=== PATIENT | female | born 1980 | race Caucasian/White ===

== ENCOUNTER 2020-09-29 08:12 | Outpatient (CLI) | payer OTHER, SELFPAY ==
--- NOTE | 2020-09-29 08:27 | FL_ITS ---
WS: [id number] Barium swallow and esophagram, upper GI series with air, 09/29/2020 Clinical Data: ABD PAIN Comparison: None. Fluoroscopy time: 1.9 minutes. Findings: The patient swallowed the thick and thin barium, and it flowed into the hypopharynx without hesitatio n. No stricture, mass, polyp or erosion was seen. The barium passed into the esophagus and there was normal motility throughout. There was a moderate h iatal hernia with a Schatzki ring. There is massive reflux with the patient in the recumbent position which reached the esophageal inlet. No ulcer, stricture, mass, polyp or erosion of the distal esopha lars was seen. The barium passed into the stomach which was well distended. No erosion, polyp, mass or deformity cou ld be seen. No gastric ulcer was present. Barium then passed into the duodenal bulb which distended normally without ulceration. The proximal small bowel is normal. FL/FL upper GI w air* [id number] Impression: 1. Moderate hiatal hernia with massive gastroesophageal reflux. 2. Negative upper GI series.
== END 2020-09-29 08:13 | disposition home or self-care (01) ==
PROVIDERS: Visit Provider Electrodiagnostic Medicine
DX: K92.0 Hematemesis (principal); K92.1 Melena; R10.13 Epigastric pain; K44.9 Diaphragmatic hernia without obstruction or gangrene
CPT/HCPCS: 74246

== ENCOUNTER 2023-09-21 17:34 | Emergency (ER) | payer OTHER, SELFPAY ==
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
[2023-09-21 17:39] VITALS: BP 139/89; PULSE 69; RESP 16; TEMP 36.7; O2SAT 97
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
[2023-09-21 18:22] VITALS: BP 129/80
[2023-09-21 18:38] LABS: Basophils # 0.1 10^3/uL (0.0-0.1); Basophils % 1.4 %; Eosinophils # 0.2 10^3/uL (0.0-0.8); Eosinophils % 3.3 %; Hematocrit 36.7 % (36-47); Lymphocytes # 1.8 10^3/uL (0.8-4.8); Lymphocytes % 31.1 %; Mean Corpuscular HGB Conc 34.6 g/dL (30-55); Mean Corpuscular Volume 89.5 fl (85-98); Mean Platelet Volume 9.8 fL (7.4-10.4); Monocytes # 0.5 10^3/uL (0.2-0.9); Neutrophils # 3.24 10^3/uL (1.8-7.7); Nucleated Red Blood Cells % 0 %; Platelet Count 242 10^3/cmm (157-399); Red Cell Distribution Width 12.7 % (12.1-15.1); White Blood Count 5.78 10^3/uL (3.29-11.43)
[2023-09-21 18:55] LABS: Alanine Aminotransferase 20 U/L (0-33); Albumin Level 4.2 g/dL (3.5-5.2); Alkaline Phosphatase 60 U/L (35-105); Anion Gap 13.3 (5-19); Aspartate Amino Transferase 18 U/L (0-32); Blood Urea Nitrogen 12 mg/dL (6-20); Calcium 8.9 mg/dL (8.5-10.5); Carbon Dioxide 23 mmol/L (22-29); Chloride 108 mmol/L (98-107); Creatinine Clr Calc Pharmacy 96.2585; Globulin 2.4 g/dL (1.3-4.6); Glomerular Filtration Rate 77.9 mL/min (90-130); Glucose 95 mg/dL (65-115); Osmolality Calculated 292 mOsm/kg (285-295); Potassium 3.3 mmol/L (3.5-5.1); Sodium 141 mmol/L (136-145); Total Bilirubin 0.5 mg/dL (0.15-1.2); Total Protein 6.6 g/dL (6.6-8.7)
[2023-09-21] MEDS: ondansetron 2 mg/ML SDV 2 mL 4 MG IVP (19:21)
[2023-09-21 19:23] VITALS: RESP 16; O2SAT 97
[2023-09-21] MEDS: morphine 4 mg/mL SDV 1 mL IVP (19:23)
--- NOTE | 2023-09-21 19:41 | PC.NURSE ---
Pt sent home with 2tabs of Tilden 5/[address] Almendarez's orders.
[2023-09-21 19:57] VITALS: BP 114/76; PULSE 73; RESP 16; O2SAT 99
--- NOTE | 2023-09-22 13:13 | PC.NURSE ---
PT FAMILY MEMBER, CAROLE, CALLED ASKING ABOUT PT AND DAUGHTER INFO. NO INFO GIVEN D/T FAMILY MEMBER NOT BEING ON CONTACT LIST.
== END 2023-09-21 19:50 | disposition home or self-care (01) ==
PROVIDERS: Family Medicine; Emergency Provider Emergency Medicine; PCP Electrodiagnostic Medicine
DX: S00.81XA Abrasion of other part of head, initial encounter (principal); S00.83XA Contusion of other part of head, initial encounter; S16.1XXA Strain of muscle, fascia and tendon at neck level, initial encounter; V89.2XXA Person injured in unspecified motor-vehicle accident, traffic, initial encounter
CPT/HCPCS: 36415; 70450; 70486; 71045; 72125; 80053; 85025; 96374; 96375; 99285; J2270; J2405

== ENCOUNTER 2024-07-16 15:40 | Outpatient (CLI) | payer OTHER, SELFPAY ==
--- NOTE | 2024-07-16 15:43 | MR_ITS ---
WS: [id number] MRI RIGHT KNEE NONCONTRAST TECHNIQUE: Axial PD, coronal PD fat sat, coronal PD, sagittal PD, and sagittal PD fat-sat images obtained. CLINICAL INFORMATION: PAIN IN RIGHT KNEE COMPARISON: None. FINDINGS: Prior postoperative changes ACL repair with tibial tunnel. Severe tricompartmental arthritis advanced for patient this age. Advanced chondromalacia patella with full-thickness cartilage defects. Hypertrophic patella. Distal quadriceps and patella tendons are intact. Small suprapatellar effusion. ACL repair appears intact. PCL appears intact. Advanced joint space narrowing medial and lateral joint compartments worse in the lateral joint compartment with grade 4 chondromalacia. Complete loss of the lateral joint compartment. Subchondral edema in the lateral femoral condyle and tibial plateau. Tiny amount of residual meniscus in the medial joint compartment with advanced joint space narrowing. Peripheral extrusion of the residual medial meniscus. Medial and lateral collateral ligaments appear intact. Popliteus appears intact. Normal popliteal fossa. MR/MR knee RT wo con* [id number] IMPRESSION: 1. 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 2. Prior postoperative changes ACL repair with tibial tunnel which appears curt ssly intact. PCL appears intact. 3. 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 4. Advanced joint space narrowing medial and lateral joint compartments worse in the lateral joint compartment with [id number] articulation. 5. Small amount of residual desiccated meniscus in the medial joint compartmen t with peripheral extrusion. 6. Small suprapatellar effusion. 7. No other acute findings. Outbridge grading: grade IV: full-thickness cartilage loss with underlying bone reactive changes
== END 2024-07-16 15:41 | disposition home or self-care (01) ==
LOC: RAD 15:42
PROVIDERS: PCP Electrodiagnostic Medicine; Visit Provider Physician Assistant
DX: M25.561 Pain in right knee (principal); M25.562 Pain in left knee; Z98.890 Other specified postprocedural states; M13.861 Other specified arthritis, right knee; M22.41 Chondromalacia patellae, right knee; R93.6 Abnormal findings on diagnostic imaging of limbs; M25.461 Effusion, right knee
CPT/HCPCS: 73721